=== PATIENT | female | born 1950 | race American Indian/Alaskan Native ===

== ENCOUNTER 2019-07-29 16:12 | Inpatient (IN) | payer MEDICARE ==
--- NOTE | 2019-07-29 16:30 | Event Note ---
ED Screening Note Date of service: 07/29/19 Time: 16:26 ED Screening Note: This is a 69 y.o. F. that presents to the ER with abdominal pain and right flank pain. Patient states she was here 2 months she was diagnosed with diverticulitis. She followed up with [facility]. + vomiting PMH DM2, HTN, & HLD This initial assessment/diagnostic orders/clinical plan/treatment(s) is/are subject to change based on patients health status, clinical progression and re- assessment by fellow clinical providers in the ED. Further treatment and workup at subsequent clinical providers discretion. Patient/guardian urged not to elope from the ED as their condition may be serious if not clinically assessed and managed. Initial orders include: Labs and CT of abdomen and pelvis
[2019-07-29 17:25] LABS: Alanine Aminotransferase 8 units/L (7-56); BUN/Creatinine Ratio 22; Blood Urea Nitrogen 13 mg/dL (7-17); Calcium 9.4 mg/dL (8.4-10.2); Hemolysis Index 0
[2019-07-29 17:32] LABS: Basophils % (Auto) 0.3 % (0.0-1.8); Eosinophils % (Auto) 0.1 % (0.0-4.3); Hematocrit 39.1 % (30.3-42.9); Hemoglobin 13.1 gm/dl (10.1-14.3); Lymphocytes # (Auto) 0.8 K/mm3 (1.2-5.4); Lymphocytes % (Auto) 7.7 % (13.4-35.0); Mean Corpuscular HGB Conc 34 % (30-34); Mean Corpuscular Volume 79 fl (79-97); Monocytes # (Auto) 0.5 K/mm3 (0.0-0.8); Monocytes % (Auto) 4.6 % (0.0-7.3); Platelet Count 224 K/mm3 (140-440); Red Blood Count 4.93 M/mm3 (3.65-5.03); Red Cell Distribution Width 15.1 % (13.2-15.2)
[2019-07-29] MEDS ORDERED: MORPHINE IV ONE (19:02)
[2019-07-29] MEDS ORDERED: NACL 0.9% 1000 ML 1,000 ML IV ONE ×2 (19:02→20:32)
[2019-07-29] MEDS ORDERED: ZOFRAN IV ONE (19:02)
--- NOTE | 2019-07-29 19:18 | Cat Scan Report ---
CT ABDOMEN AND PELVIS WITH IV CONTRAST INDICATION: diffuse abdominal pain. COMPARISON: CT 06/13/2019. TECHNIQUE: All CT scans at this facility use dose modulation, automated exposure control, iterative reconstructi on or weight based dosing, when appropriate, to reduce radiation dose to as low as reasonably achieva ble. FINDINGS: Lung Bases: No significant abnormality. Skeletal System: No acute abnormality. ABDOMEN: Liver: No significant abnormality. Gallbladder: No significant abnormality. Bile Ducts: No significant abnormality. Pancreas: No significant abnormality. Spleen: No significant abnormality. Adrenals: No significant abnormality. Right Kidney: No significant abnormality. Left Kidney: No significant abnormality. Upper GI tract: No significant abnormality. Lymph Nodes: No significant adenopathy. Aorta: No significant abnormality. Additional Findings: No significant abnormality. PELVIS: Colon: Small gas and fluid collection with peripheral enhancement is again seen within the midline u pper pelvis. This measures 2.3 x 3.1 cm on series 4 image 82. This may be slightly increased in size since the prior. There is diffuse extensive diverticulosis. Urinary Bladder and Distal Ureters: No significant abnormality. Appendix: No significant abnormality. Lymph Nodes: No significant adenopathy. Additional Findings: Pelvic loops of small bowel are fluid-filled and dilated. The very distal small bowel is relatively decompressed. IMPRESSION: 1. Subacute/chronic peridiverticular fluid collection in the midline pelvis has slightly increased i n size since the prior exam. This measures 3.1 x 2.3 cm (previously 2.6 cm in maximum dimension. This may communicate with the adjacent colon which shows mild inflammation/diverticulitis. Of note, pelvi c loops of small bowel are closely apposed to this collection and pelvic loops of small bowel are mil dly dilated. There may be some degree of partial small bowel obstruction due to adhesions associated with this inflammation. Findings are similar to the prior exam. 2. No new findings. Signer Name: Jeremiah Jack MD Signed: 07/29/2019 7:14 PM Workstation Name: [id number]
--- NOTE | 2019-07-29 19:26 | Emergency Department Report ---
ED Abdominal Pain HPI - General Chief Complaint: Abdominal Pain Stated Complaint: STOMACH PAIN Time Seen by Provider: 07/29/19 16:26 Source: patient Mode of arrival: Ambulatory Limitations: No Limitations - History of Present Illness Initial Comments: Patient is a 69-year-old -[place] female with a history of hypertension, pth-rdahuju-dgjkbksab diabetes, hyperlipidemia and recurrent diverticulitis who presents to the ED with complaint of acute onset persistent severe diffuse abdominal pain, nausea and vomiting with diarrhea for the last 2 days. Patient states that her symptoms are similar to the feeling she had about 6 months ago when she had diverticulitis exacerbation. Patient also states that she's been having persistent right flank pain that radiates to the right lower quadrant since the onset of the symptoms. Patient denies fever, chills, dysuria, dizziness, chest pain, shortness of breath, headache, headache, vaginal bleedin g, urinary frequency and urgency and low back pain. MD Complaint: abdominal pain, other (nausea, vomiting and diarrhea) -: Sudden, days(s) (2) Location: diffuse, R flank Radiation: LLQ, RLQ, R flank Migration to: no migration Severity: severe Severity scale (0 -10): 8 Quality: cramping, aching, sharp Consistency: constant Improves With: nothing Worsens With: nothing Associated Symptoms: denies other symptoms, nausea, vomiting, diarrhea, anorexia. denies: fever, chills, constipation, dysuria, hematemesis, hematochezia, melena, hematuria - Related Data Previous Rx's Medication Instructions Recorded Last Taken Type levoFLOXacin [Levofloxacin] 750 mg PO Q8HR 21 Days tablet 06/16/19 Unknown Rx metroNIDAZOLE [Metronidazole] 500 mg PO Q8H 21 Days tablet 06/16/19 Unknown Rx Doxazosin [Cardura] 4 mg PO QDAY #30 tablet 06/17/19 Unknown Rx Glimepiride [Amaryl] 4 mg PO QAM #30 tablet 06/17/19 Unknown Rx Insulin Regular, Human [HumuLIN R] 0 units SUB-Q Q6HR #300 units 06/17/19 Unknown Rx Pravastatin [Pravachol] 80 mg PO QHS #30 tablet 06/17/19 Unknown Rx levoFLOXacin [Levaquin] 750 mg PO QDAY #10 tablet 06/17/19 Unknown Rx metroNIDAZOLE [Flagyl] 500 mg PO Q8HR #30 tablet 06/17/19 Unknown Rx Allergies Allergy/AdvReac Type Severity Reaction Status Date / Time aspirin Allergy Vomiting Verified 06/13/19 07:59 codeine Allergy Unknown Verified 06/13/19 00:11 Penicillins Allergy Unknown Verified 06/13/19 00:11 ED Review of Systems ROS: Stated complaint: STOMACH PAIN Other details as noted in HPI Constitutional: denies: chills, fever Eyes: denies: eye pain, eye discharge, vision change ENT: denies: ear pain, throat pain Respiratory: denies: cough, shortness of breath, wheezing Cardiovascular: denies: chest pain, palpitations, syncope, paroxysmal nocturnal dyspnea Endocrine: no symptoms reported Gastrointestinal: abdominal pain, nausea, vomiting, diarrhea Genitourinary: denies: urgency, dysuria, discharge Musculoskeletal: denies: back pain, joint swelling, arthralgia Skin: denies: rash, lesions Neurological: denies: headache, weakness, paresthesias Psychiatric: denies: anxiety, depression Hematological/Lymphatic: denies: easy bleeding, easy bruising ED Past Medical Hx - Past Medical History Previous Medical History?: Yes Hx Diabetes: Yes Additional medical history: Ovarian cyst - Surgical History Past Surgical History?: Yes Additional Surgical History: Partial hysterectomy and ovarian cyst removal - Social History Smoking Status: Former Smoker Substance Use Type: Alcohol, Prescribed - Medications Home Medications: Home Medications Medication Instructions Recorded Confirmed Last Taken Type levoFLOXacin [Levofloxacin] 750 mg PO Q8HR 21 Days tablet 06/16/19 Unknown Rx metroNIDAZOLE [Metronidazole] 500 mg PO Q8H 21 Days tablet 06/16/19 Unknown Rx Doxazosin [Cardura] 4 mg PO QDAY #30 tablet 06/17/19 Unknown Rx Glimepiride [Amaryl] 4 mg PO QAM #30 tablet 06/17/19 Unknown Rx Insulin Regular, Human [HumuLIN R] 0 units SUB-Q Q6HR #300 units 06/17/19 Unknown Rx Pravastatin [Pravachol] 80 mg PO QHS #30 tablet 06/17/19 Unknown Rx levoFLOXacin [Levaquin] 750 mg PO QDAY #10 tablet 06/17/19 Unknown Rx metroNIDAZOLE [Flagyl] 500 mg PO Q8HR #30 tablet 06/17/19 Unknown Rx ED Physical Exam - General Limitations: No Limitations General appearance: alert, in no apparent distress - Head Head exam: Present: atraumatic, normocephalic, normal inspection - Eye Eye exam: Present: normal appearance, PERRL, EOMI Pupils: Present: normal accommodation - ENT ENT exam: Present: normal exam, normal orophraynx, mucous membranes moist, TM's normal bilaterally, normal external ear exam - Neck Neck exam: Present: normal inspection, full ROM - Respiratory Respiratory exam: Present: normal lung sounds bilaterally. Absent: respiratory distress, wheezes, rales, chest wall tenderness, accessory muscle use - Cardiovascular Cardiovascular Exam: Present: normal rhythm, tachycardia, normal heart sounds. Absent: systolic murmur, diastolic murmur, rubs, gallop - GI/Abdominal GI/Abdominal exam: Present: soft, tenderness (probable diffuse abdominal tenderness, worse in the left lower quadrant and right lower quadrant, with guarding), guarding, normal bowel sounds. Absent: rebound, hyperactive bowel sounds (.), hypoactive bowel sounds, mass - Extremities Exam Extremities exam: Present: normal inspection, full ROM, normal capillary refill - Back Exam Back exam: Present: normal inspection, full ROM. Absent: tenderness, CVA tenderness (R), CVA tenderness (L), muscle spasm, paraspinal tenderness - Neurological Exam Neurological exam: Present: alert, oriented X3, CN II-XII intact, normal gait, reflexes normal - Psychiatric Psychiatric exam: Present: normal affect, normal mood - Skin Skin exam: Present: warm, dry, intact, normal color. Absent: rash ED Course Vital Signs 07/29/19 07/29/19 07/29/19 16:25 17:44 19:34 Temperature 98.7 F 98.9 F Pulse Rate 125 H 108 H 114 H Respiratory 20 24 19 Rate Blood Pressure 188/95 Blood Pressure 169/85 143/85 [Right] O2 Sat by Pulse 96 100 100 Oximetry - Reevaluation(s) Reevaluation #1: 07/29/19 19:27 This is a 69-year-old female who presented to the ED with abdominal pain, nausea and vomiting with diarrhea. Patient has a history of chronic diverticulitis with occasional flares. In the ED, patient is alert and oriented 3 and is not in distress but appears to be in pain and is tachycardic in triage but afebrile. Lab test results were reviewed and are all unremarkable except for acute hyperglycemia of 328 mg/dL. Abdomen pelvis CT scan with contrast shows a subacute/chronic peridiverticular fluid collection in the midline pelvis which has slightly increased in size since the prior exam. This measures 3.1 x 2.3 cm (previously 2.6 cm in maximum dimension. This may communicate with the adjacent colon which shows mild inflammation/diverticulitis. Of note, pelvic loops of small bowel are closely apposed to this collection and pelvic loops of small bowel are mildly dilated. There may be some degree of partial small bowel obstruction due to adhesions associated with this inflammation. Findings are similar to the prior exam. These findings were discussed with the ED attending physician Dr. Altamirano who advised that the General Surgeon secondary market manager Dr. Kiran be paged for further direction. These findings were also discussed wi th the general surgeon secondary market manager Dr. Kiran who advised the patient be admitted to the hospital and he shall consult on the patient in the morning for admission. He advised that an NG tube be inserted on the patient. The patient's case was also discussed with the Hospitalist Physician secondary market manager Dr. Adame who admitted the patient to the hospital ED Medical Decision Making - Lab Data Result diagrams: 07/29/19 16:38 07/29/19 16:38 - Radiology Data Radiology results: report reviewed, [place] [address] Cat Scan Report Signed Patient: ELEAZAR ESPINO MR#: [id number] : 1950 Acct:[id number] Age/Sex: 69 / F ADM Date: 07/29/19 Loc: ED Attending Dr: Ordering Physician: CORTEZ BALL Date of Service: 07/29/19 Procedure(s): CT abdomen pelvis w con Accession Number(s): [id number] cc: CORTEZ BALL CT ABDOMEN AND PELVIS WITH IV CONTRAST INDICATION: diffuse abdominal pain. COMPARISON: CT 06/13/2019. TECHNIQUE: All CT scans at this facility use dose modulation, automated exposure control, iterative reconstruction or weight based dosing, when appropriate, to reduce radiation dose to as low as reasonably achievable. FINDINGS: Lung Bases: No significant abnormality. Skeletal System: No acute abnormality. ABDOMEN: Liver: No significant abnormality. Gallbladder: No significant abnormality. Bile Ducts: No significant abnormality. Pancreas: No significant abnormality. Spleen: No significant abnormality. Adrenals: No significant abnormality. Right Kidney: No significant abnormality. Left Kidney: No significant abnormality. Upper GI tract: No significant abnormality. Lymph Nodes: No significant adenopathy. Aorta: No significant abnormality. Additional Findings: No significant abnormality. PELVIS: Colon: Small gas and fluid collection with peripheral enhancement is again seen within the midline upper pelvis. This measures 2.3 x 3.1 cm on series 4 image 82. This may be slightly increased in size since the prior. There is diffuse extensive diverticulosis. Urinary Bladder and Distal Ureters: No significant abnormality. Appendix: No significant abnormality. Lymph Nodes: No significant adenopathy. Additional Findings: Pelvic loops of small bowel are fluid-filled and dilated. The very distal small bowel is relatively decompressed. IMPRESSION: 1. Subacute/chronic peridiverticular fluid collection in the midline pelvis has slightly increased in size since the prior exam. This measures 3.1 x 2.3 cm (previously 2.6 cm in maximum dimension. This may communicate with the adjacent colon which shows mild inflammation/diverticulitis. Of note, pelvic loops of small bowel are closely apposed to this collection and pelvic loops of small bowel are mildly dilated. There may be some degree of partial small bowel obstruction due to adhesions associated with this inflammation. Findings are similar to the prior exam. 2. No new findings. Signer Name: Jeremiah Jack MD Signed: 07/29/2019 7:14 PM Workstation Name: [id number] Transcribed By: MARCOS Dictated By: Jeremiah Jack MD Electronically Authenticated By: Jeremiah Jack MD Signed Date/Time: 07/29/191913 DD/ 08 TD/TT: - Medical Decision Making This is a 69-year-old female who presented to the ED with abdominal pain, nausea and vomiting with diarrhea. Patient has a history of chronic diverticulitis with occasional flares. In the ED, patient is alert and oriented 3 and is not in distress but appears to be in pain and is tachycardic in triage but afebrile. Lab test results were reviewed and are all unremarkable except for acute hyperglycemia of 328 mg/dL. Abdomen pelvis CT scan with contrast shows a subacute/chronic peridiverticular fluid collection in the midline pelvis which has slightly increased in size since the prior exam. This measures 3.1 x 2.3 cm (previously 2.6 cm in maximum dimension. This may communicate with the adjacent colon which shows mild inflammation/diverticulitis. Of note, pelvic loops of small bowel are closely apposed to this collection and pelvic loops of small bowel are mildly dilated. There may be some degree of partial small bowel obstruction due to adhesions associated with this inflammation. Findings are similar to the prior exam. These findings were discussed with the ED attending physician Dr. Altamirano who advised that the General Surgeon secondary market manager Dr. Kiran be paged for further direction. These findings were also discussed with the general surgeon secondary market manager Dr. Kiran who advised the patient be admitted to the hospital and he shall consult on the patient in the morning for admission. He advised that an NG tube be inserted on the patient. The patient's case was also discussed with the Hospitalist Physician secondary market manager Dr. Adame who admitted the patient to the hospital - Differential Diagnosis Abdominal pain; Diverticulitis; Pyelonephritis; Acute UTI; SBO; Colitis Critical care attestation.: If time is entered above; I have spent that time in minutes in the direct care of this critically ill patient, excluding procedure time. ED Disposition Clinical Impression: Nausea, vomiting and diarrhea, Acute diverticulitis of intestine, Small bowel obstruction due to adhesions Abdominal pain Qualifiers: Abdominal location: lower abdomen, unspecified Qualified Code(s): R10.30 - Lower abdominal pain, unspecified Disposition: OP ADMIT IP TO THIS HOSP Is pt being admited?: Yes Does the pt Need Aspirin: No Condition: Stable Instructions: Abdominal Pain (ED) Referrals: DEWAYNE ROMERO MD [Primary Care Provider] - 3-5 Days Time of Disposition: 21:29 Print Language: YI
[2019-07-29 19:36] LABS: Bilirubin,Urine NEG (Negative); Blood,Urine NEG (Negative); Color,Urine Yellow (Yellow); Mucus,Urine FEW /HPF; Urobilinogen,Urine < 2.0 mg/dL (<2.0)
[2019-07-29] MEDS ORDERED: FLAGYL 500 MG/100 ML 500 MG/100 ML BAG IV ONE (20:30)
[2019-07-29] MEDS ORDERED: REGLAN IV ONE (20:43)
[2019-07-29] MEDS ORDERED: DILAUDID ONE (20:52)
[2019-07-29] MEDS ORDERED: DILAUDID IV ONE (20:59)
[2019-07-29] MEDS ORDERED: LEVAQUIN 500MG/100ML 500 MG/100 ML BAG IV ONE (21:30)
[2019-07-29] MEDS ORDERED: D50W (25GM) Syringe IV PRN (22:45)
[2019-07-29] MEDS ORDERED: NACL 0.9% 1000 ML 1,000 ML IV SCH (23:00)
[2019-07-29] MEDS ORDERED: HumuLIN R ONE (23:24)
[2019-07-29] MEDS: HumuLIN R SUB-Q SCH (23:27)
[2019-07-30] MEDS: TYLENOL PR PRN (00:18)
[2019-07-30] MEDS: HumuLIN R SUB-Q SCH ×6 (02:34→22:49)
[2019-07-30] MEDS: FLAGYL 500 MG/100 ML 500 MG/100 ML BAG IV SCH ×3 (05:10→22:04)
--- NOTE | 2019-07-30 05:15 | History and Physical Report ---
CHIEF COMPLAINT: Abdominal pain. Other complaints include nausea and vomiting. HISTORY OF PRESENT ILLNESS: The patient is a 69-year-old female who says she has been having abdominal pain going on for about 2 days. Pain is diffuse in the abdomen area and is associated with nausea and vomiting and pain did not radiate and is similar to the pain patient had 6 months ago when she had diverticulitis. There is no history of fever or chills and no history of constipation. The patient also denied history of shortness of breath or dysuria. Pain is dull in character. PAST MEDICAL HISTORY: Pertinent for diabetes mellitus and ovarian cyst. PAST SURGICAL HISTORY: Pertinent for partial hysterectomy and ovarian cyst removal. FAMILY HISTORY: Reviewed and noncontributory. SOCIAL HISTORY: The patient drinks alcohol, does not smoke cigarette and does not use illicit drugs. MEDICATIONS: The patient is on the following medications: Levaquin 750 mg by mouth, frequency unknown. Also, patient is on metronidazole 500 mg by mouth every 8 hours and doxazosin 4 mg by mouth daily. The patient is also on glimepiride 4 mg by mouth every morning and on regular insulin sliding scale. Also, patient is on pravastatin 80 mg at bedtime. ALLERGIES: THE PATIENT IS ALLERGIC TO ASPIRIN, CODEINE, AND PENICILLIN. REVIEW OF SYSTEMS: CONSTITUTIONAL: There is no fever, no chills, no diaphoresis. HEENT: There is no headache or sore throat. CARDIOVASCULAR SYSTEM: There is no chest pain or orthopnea. RESPIRATORY SYSTEM: There is no shortness of breath or cough. GASTROINTESTINAL SYSTEM: Abdominal pain present. Nausea and vomiting present. No constipation, no diarrhea. NEUROLOGICAL SYSTEM: There is no numbness, no dizziness, no altered mental status. MUSCULOSKELETAL SYSTEM: There is no joint pain or swelling. DERMATOLOGICAL SYSTEM: There is no skin rash or itching. GENITOURINARY SYSTEM: There is no dysuria, hematuria, or flank pain. Rest of system review is normal. PHYSICAL EXAMINATION: GENERAL: At the time of exam, patient was found to be alert, oriented x 3 and in mild distress due to abdominal pain. VITAL SIGNS: The patient's vital signs at the initial time of presentation showed temperature of 98.7 degrees Fahrenheit, pulse of 125, respirations 20, blood pressure 188/95, O2 sat of 96% on room air. HEENT: Showed pupils to be equal, round, reactive to light and accommodating. Extraocular muscles are intact. NECK: Supple with no JVD or carotid bruit. CARDIOVASCULAR SYSTEM: Showed normal first and second heart sounds with no gallops or murmur. RESPIRATORY SYSTEM: Showed good air entry on both sides of the lungs with no abnormal breath sounds. GASTROINTESTINAL SYSTEM: Show abdomen to be full, soft with tenderness in the left lower quadrant and suprapubic area. There is no rigidity, no organomegaly was elicited and no rebound tenderness present. Bowel sound is normal. MUSCULOSKELETAL SYSTEM: Show no joint swelling or tenderness. DERMATOLOGICAL SYSTEM: Show no skin rash. GENITOURINARY SYSTEM: Show no costovertebral angle tenderness. PERTINENT LABORATORY: The patient has CBC done with normal white count, normal hemoglobin and normal hematocrit with CBC differential showing elevated neutrophil count of 87.3%. The patient's chemistry was normal except for elevated blood glucose level of 328. The rest of the patient's chemistry was unremarkable. Urinalysis showed high specific gravity of 1.048, otherwise unremarkable. IMAGING STUDIES: The patient had CT of the abdomen and pelvis done with IV contrast and this shows evidence of diverticulitis and small-bowel obstruction. DIAGNOSES: 1. Small-bowel obstruction. 2. Diverticulitis. PLAN OF CARE: 1. The patient will be admitted to medical/surgical [facility]. 2. The patient will continue surgical consult with Dr. Kiran requested by the Emergency Room physician. 3. The patient will be on Accu-Chek q. 4 hours followed by low-dose sliding scale using regular insulin coverage. 4. The patient will continue intermittent low wall nasogastric suctioning requested by the Emergency Room physician. 5. The patient will remain n.p.o. until reviewed by the surgeon. 6. The patient will be on IV metronidazole 500 mg q. 8 hours and will be on IV Levaquin 750 mg daily. 7. The patient will be on IV Dilaudid 0.5 mg q. 4 hours as needed for pain and IV Zofran 4 mg every 8 hours for nausea and vomiting. 8. The patient will be on Tylenol suppository 650 mg rectally every 4 hours for fever and headache. JOB# [id number] OCN/NTS
[2019-07-30] MEDS: DILAUDID IV PRN ×4 (06:33→22:45)
[2019-07-30] MEDS: ZOFRAN IV PRN ×3 (06:48→17:49)
[2019-07-30] MEDS: HEPARIN SUB-Q SCH ×2 (09:53→22:07)
[2019-07-30] MEDS: LEVAQUIN 750MG/150ML 750 MG/150 ML BAG IV SCH (09:54)
--- NOTE | 2019-07-30 11:53 | Event Note ---
Date: 07/30/19 Patient is seen and examined. Has a history of recurrent diverticulitis with a CT scan showing evidence of small bowel obstruction. Abdominal pain. No vomiting. Has not had any bowel movement but the past 2 days. Surgical consult has been placed. We'll continue with current management plan, NPO, IV fluids and IV antibiotics while awaiting a surgical imput.
[2019-07-30] MEDS: PEPCID PO SCH ×2 (12:51→22:05)
[2019-07-30] MEDS: D5/0.45NS 1,000 ML IV SCH (12:52)
--- NOTE | 2019-07-30 13:29 | Consultation ---
History of Present Illness Consult date: 07/30/19 Reason for consult: abdominal pain Requesting physician: BRIAN MEDLEY Chief complaint: Left side abdominal pain - History of present illness History of present illness: 69 year old female presented to the ED yesterday with an acute recurrence of the same abdominal pain that she had in May for which she was admitted. At that time, she had a one day history of epigastric abdominal pain with nausea and vomiting. she says the pain was 10/10. A CT scan showed distal sigmoid diver ticulitis with 2.6cm adjacent abscess w/ no free air and possible bowel obstruction. She was admitted and given IV antibiotics. She improved and was eventually discharged. The infectious disease plan at that time was to give her 3 weeks of antibiotics and follow-up in the office which she did. She was also supposed to get a repeat CT scan as an outpatient, she reports that infectious disease and it was no longer needed. She reports that she completely recovered at that time. She had no symptoms. This is now a completely new episode of pain. It is exactly the same as it was in May. This time, there were no fevers, chills, nausea, vomiting. She has been passing flatus. Her pain is slightly better than admission. She never did get a colonoscopy. She stated that under no circumstances did she want any surgery. Past History Past Medical History: diabetes, hypertension, hyperlipidemia Past Surgical History: hysterectomy (with ovarian cystectomy) Social history: denies: smoking, alcohol abuse Family history: no significant family history Medications and Allergies Allergies Allergy/AdvReac Type Severity Reaction Status Date / Time aspirin Allergy Vomiting Verified 06/13/19 07:59 codeine Allergy Unknown Verified 06/13/19 00:11 Penicillins Allergy Unknown Verified 06/13/19 00:11 Home Medications Medication Instructions Recorded Confirmed Last Taken Type levoFLOXacin [Levofloxacin] 750 mg PO Q8HR 21 Days tablet 06/16/19 07/30/19 Unknown Rx metroNIDAZOLE [Metronidazole] 500 mg PO Q8H 21 Days tablet 06/16/19 07/30/19 Unknown Rx Doxazosin [Cardura] 4 mg PO QDAY #30 tablet 06/17/19 07/30/19 Unknown Rx Glimepiride [Amaryl] 4 mg PO QAM #30 tablet 06/17/19 07/30/19 Unknown Rx Insulin Regular, Human [HumuLIN R] 0 units SUB-Q Q6HR #300 units 06/17/1907/18 Unknown Rx Pravastatin [Pravachol] 80 mg PO QHS #30 tablet 06/17/19 07/30/19 Unknown Rx levoFLOXacin [Levaquin] 750 mg PO QDAY #10 tablet 06/17/19 07/30/19 Unknown Rx metroNIDAZOLE [Flagyl] 500 mg PO Q8HR #30 tablet 06/17/19 07/30/19 Unknown Rx Active Meds: Active Medications Acetaminophen (Tylenol) 650 mg CO Q4H PRN PRN Reason: Fever >101 Last Admin: 07/30/19 00:18 Dose: 650 mg Documented by: Dextrose (D50w (25gm) Syringe) 50 ml IV PRN PRN PRN Reason: Hypoglycemia Famotidine (Pepcid) 40 mg PO BID JR Last Admin: 07/30/19 12:51 Dose: 40 mg Documented by: Heparin Sodium (Porcine) (Heparin) 5,000 unit SUB-Q Q12HR JR Last Admin: 07/30/19 09:53 Dose: 5,000 unit Documented by: Hydromorphone HCl (Dilaudid) 0.5 mg IV Q4H PRN PRN Reason: Pain, Moderate (4-6) Last Admin: 07/30/19 12:59 Dose: 0.5 mg Documented by: Metronidazole (Flagyl 500 Mg/100 Ml) 500 mg in 100 mls @ 100 mls/hr IV Q8HR JR; Protocol Last Admin: 07/30/19 13:00 Dose: 100 mls/hr Documented by: Levofloxacin/Dextrose (Levaquin 750mg/150ml) 750 mg in 150 mls @ 100 mls/hr IV Q24HR JR; Protocol Last Admin: 07/30/19 09:54 Dose: 100 mls/hr Documented by: Dextrose/Sodium Chloride (D5/0.45ns) 1,000 mls @ 100 mls/hr IV DIRECT JR Last Admin: 07/30/19 12:52 Dose: 100 mls/hr Documented by: Insulin Human Regular (Humulin R) 0 units SUB-Q Q4HR JR; Protocol Last Admin: 07/30/19 10:26 Dose: 3 units Documented by: Ondansetron HCl (Zofran) 4 mg IV Q8H PRN PRN Reason: Nausea And Vomiting Last Admin: 07/30/19 13:04 Dose: 4 mg Documented by: Review of Systems - Constitutional no fever, no chills, no chronic pain - Cardiovascular no chest pain, no shortness of breath - Respiratory no cough - Gastrointestinal abdominal pain, constipation, heartburn, no nausea, no vomiting, no change in bowel habits, no BRBPR, no melena, no hematochezia, no dyspepsia/bloating - Genitourinary Genitourinary: no dysuria - Muskuloskeletal no low back pain - Integumentary no rash, no pruritis, no redness, no sores Exam Vital Signs Temp Pulse Resp BP Pulse Ox 98.7 F 125 H 20 188/95 96 07/29/19 16:25 07/29/19 16:25 07/29/19 16:25 07/29/19 16:25 07/29/19 16:25 - General physical appearance Positive: no distress, no pain, obese - Eyes Positive: normal occular movement - Respiratory Positive: normal expansion, normal respiratory effort, clear to auscultation - Cardiovascular Rhythm: regular - Abdomen Abdomen: Present: soft, tender (mild on left side of abdomen), bowel sounds hypoactive, surgical scars (well healed lower midline incision). Absent: masses, rebound, guarding, rigid, wound - Integumentary no rash, no growths, no abnormal pigmentation - Neurologic Neurologic: alert and oriented to time, place and person, motor strength and se nsation are grossly intact - Psychiatric Psychiatric: appropriate mood/affect, intact judgment & insight, cooperative Results - Labs 07/29/19 16:38 07/29/19 16:38 Abnormal lab results 07/29/19 07/29/19 07/29/19 Range/Units 16:38 16:38 19:23 MCH 27 L (28-32) pg Lymph % (Auto) 7.7 L (13.4-35.0) % Lymph # 0.8 L (1.2-5.4) K/mm3 Seg Neutrophils % 87.3 H (40.0-70.0) % Seg Neutrophils # 8.8 H (1.8-7.7) K/mm3 Creatinine 0.6 L (0.7-1.2) mg/dL Glucose 328 H (65-100) mg/dL POC Glucose (70-105) Ur Specific [place] 1.048 H (1.003-1.030) 07/29/19 07/30/19 07/30/19 Range/Units 23:24 02:26 06:45 MCH (28-32) pg Lymph % (Auto) (13.4-35.0) % Lymph # (1.2-5.4) K/mm3 Seg Neutrophils % (40.0-70.0) % Seg Neutrophils # (1.8-7.7) K/mm3 Creatinine (0.7-1.2) mg/dL Glucose (65-100) mg/dL POC Glucose 297 H 270 H 285 H (70-105) Ur Specific [place] (1.003-1.030) 07/30/19 07/30/19 Range/Units 10:25 11:34 MCH (28-32) pg Lymph % (Auto) (13.4-35.0) % Lymph # (1.2-5.4) K/mm3 Seg Neutrophils % (40.0-70.0) % Seg Neutrophils # (1.8-7.7) K/mm3 Creatinine (0.7-1.2) mg/dL Glucose (65-100) mg/dL POC Glucose 281 H 287 H (70-105) Ur Specific [place] (1.003-1.030) Diabetes panel 07/29/19 Range/Units 16:38 Sodium 137 (137-145) mmol/L Potassium 4.4 (3.6-5.0) mmol/L Chloride 98.0 (98-107) mmol/L Carbon Dioxide 23 (22-30) mmol/L BUN 13 (7-17) mg/dL Creatinine 0.6 L (0.7-1.2) mg/dL Glucose 328 H (65-100) mg/dL Calcium 9.4 (8.4-10.2) mg/dL AST 9 (5-40) units/L ALT 8 (7-56) units/L Alkaline Phosphatase 77 (35-129) units/L Total Protein 7.8 (6.3-8.2) g/dL Albumin 4.0 (3.9-5) g/dL Calcium panel 07/29/19 Range/Units 16:38 Calcium 9.4 (8.4-10.2) mg/dL Albumin 4.0 (3.9-5) g/dL Pituitary panel 07/29/19 Range/Units 16:38 Sodium 137 (137-145) mmol/L Potassium 4.4 (3.6-5.0) mmol/L Chloride 98.0 (98-107) mmol/L Carbon Dioxide 23 (22-30) mmol/L BUN 13 (7-17) mg/dL Creatinine 0.6 L (0.7-1.2) mg/dL Glucose 328 H (65-100) mg/dL Calcium 9.4 (8.4-10.2) mg/dL Adrenal panel 07/29/19 Range/Units 16:38 Sodium 137 (137-145) mmol/L Potassium 4.4 (3.6-5.0) mmol/L Chloride 98.0 (98-107) mmol/L Carbon Dioxide 23 (22-30) mmol/L BUN 13 (7-17) mg/dL Creatinine 0.6 L (0.7-1.2) mg/dL Glucose 328 H (65-100) mg/dL Calcium 9.4 (8.4-10.2) mg/dL Total Bilirubin 0.50 (0.1-1.2) mg/dL AST 9 (5-40) units/L ALT 8 (7-56) units/L Alkaline Phosphatase 77 (35-129) units/L Total Protein 7.8 (6.3-8.2) g/dL Albumin 4.0 (3.9-5) g/dL - Imaging CT scan - abdomen: report reviewed, image reviewed CT scan - pelvis: report reviewed, image reviewed Assessment and Plan - Patient Problems (1) Diverticulitis of large intestine with abscess Current Visit: Yes Status: Acute Qualifiers: Diverticulitis bleeding: without bleeding Qualified Code(s): K57.20 - Diverticulitis of large intestine with perforation and abscess without bleeding Plan to address problem: Pt stable. Most likely, the fluid collection adjacent to the area of di verticulitis never completely resolved. Without that interval CT scan, we cannot say for sure that her initial diverticulitis attack completely resolved. I presume that it persisted and this fluid collection is a continuation from May. Patient does not require any urgent surgical intervention. However, I think eventually she will need surgery to resolve this issue. The location of the fluid collection makes it unlikely that interventional radiology will be able to drain it. In addition, it is very small and usually something like this is treated with antibiotics. When this was mentioned to her, she adamantly refused to have any surgery. She had a bad experience with a friend dying from what she reports was similar situation. I asked her to consider the situation of her health declining to the point that it's an emergency. She said she will think about it and let someone know what her decision would be in that scenario. Clinically, she does not show any signs of a bowel obstruction. He has been passing flatus. Okay to start a clear liquid diet. Would advance her diet as her overall picture improves. Rec: 1) ID consult for IV Abx management 2) When d/c'd would get repeat CT when Abx therapy completed 3) Needs c-scope when current episode resolves. 4) high fiber diet and increased water intake. Will be available if needed. Please call with questions. Time=30min
--- NOTE | 2019-07-30 22:30 | Progress Note ---
Assessment and Plan - Small bowel obstruction per CT scan of abdomen Nothing by mouth, IV fluid, surgical consult Continue patient on IV Levaquin and Flagyl - Diverticulitis Continue with nothing by mouth, IV antibiotics - T2 DM Patient continued to be nothing by mouth IV fluid with D5 half-normal Obtain A1c, lipid panel Sliding scale insulin Consistent collided diet when patient commence oral feeding - Morbid obesity with BMI of 45.0 Dietary counseling done - DVT prophylaxis with Lovenox and GI with Pepcid - Time spent: 32 minutes Subjective Date of service: 07/30/19 Principal diagnosis: recurrent diverticulitis, partial intestinal obstruction, Interval history: Patient seen and examined. Complains of mild abdominal pain. No nausea no vomiting. Passes flatus but no bowel movement for the past 2 days. Objective - Exam Narrative Exam: Constitutional: Well-nourished well-developed. In no distress Head: Normocephalic atraumatic Eyes: Pupils are equal round and reactive to light Nose: No enlarged turbinates, no septal deviation. Mouth: Moist mucous membranes. Neck: Supple no thyromegaly. No bruit. No JVD Heart: Regular rate and rhythm, S1-S2 normal. No rubs murmurs or gallop Lungs: Clear to auscultation bilaterally. no rales or rhonchi Abdomen: Soft, nontender. Bowel sound are present. Extremities: No edema, no cyanosis, no clubbing. Neuro: Alert oriented Oriented x3. No focal sensory or motor deficit. Skin: No rashes or hyperpigmented spots Musculoskeletal system: No joint pain or swelling Hematological: No petechia or subcutanous hemorrhages. Immunological: No multiple septic spots on the skin Lymphatic: No generalized lymphadenopathy Psychiatry: Euthymic. Calm. - Labs CBC & Chem 7: 07/29/19 16:38 07/29/19 16:38 Labs: Abnormal lab results 07/29/19 07/30/19 07/30/19 Range/Units 23:24 02:26 06:45 POC Glucose 297 H 270 H 285 H (70-105) 07/30/19 07/30/19 07/30/19 Range/Units 10:25 11:34 14:49 POC Glucose 281 H 287 H 244 H (70-105) 07/30/19 07/30/19 Range/Units 18:04 21:57 POC Glucose 245 H 247 H (70-105)
[2019-07-31] MEDS: D5/0.45NS 1,000 ML IV SCH (00:25)
[2019-07-31] MEDS: HumuLIN R SUB-Q SCH ×6 (03:13→23:07)
[2019-07-31] MEDS: FLAGYL 500 MG/100 ML 500 MG/100 ML BAG IV SCH ×3 (05:54→23:05)
[2019-07-31 06:31] LABS: Basophils % (Auto) 0.4 % (0.0-1.8); Eosinophils # (Auto) 0.1 K/mm3 (0.0-0.4); Hematocrit 32.3 % (30.3-42.9); Hemoglobin 10.8 gm/dl (10.1-14.3); Lymphocytes # (Auto) 1.1 K/mm3 (1.2-5.4); Lymphocytes % (Auto) 18.2 % (13.4-35.0); Mean Corpuscular HGB Conc 34 % (30-34); Mean Corpuscular Volume 80 fl (79-97); Monocytes # (Auto) 0.4 K/mm3 (0.0-0.8); Monocytes % (Auto) 6.6 % (0.0-7.3); Platelet Count 179 K/mm3 (140-440); Red Blood Count 4.03 M/mm3 (3.65-5.03); Red Cell Distribution Width 15.1 % (13.2-15.2)
[2019-07-31 07:01] LABS: BUN/Creatinine Ratio 14; Blood Urea Nitrogen 7 mg/dL (7-17); Calcium 8.6 mg/dL (8.4-10.2); Hemolysis Index 17
[2019-07-31 07:04] LABS: Alanine Aminotransferase < 5 units/L (7-56)
[2019-07-31] MEDS: LEVAQUIN 750MG/150ML 750 MG/150 ML BAG IV SCH (10:15)
[2019-07-31] MEDS: PEPCID PO SCH ×2 (10:16→23:06)
[2019-07-31] MEDS: HEPARIN SUB-Q SCH ×2 (10:16→23:06)
--- NOTE | 2019-07-31 10:19 | Progress Note ---
Assessment and Plan - Small bowel obstruction per CT scan of abdomen Patient had 2 bowel movements today Surgeon's Rec noted Commence clear liquid and advance as tolerated Continue patient on IV Levaquin and Flagyl - Diverticulitis Clear liquids and IV antibiotics - T2 DM IV fluid with D5 half-normal Obtain A1c, lipid panel Sliding scale insulin Consistent collided diet when patient commence oral feeding - Morbid obesity with BMI of 45.0 Dietary counseling done - DVT prophylaxis with Lovenox and GI with Pepcid - Time spent: 32 minutes Subjective Date of service: 07/31/19 Principal diagnosis: recurrent diverticulitis, partial intestinal obstruction, Interval history: Patient seen and examined. Complains of mild abdominal pain. No nausea no vomiting. Had BM x 2 today. Objective - Exam Narrative Exam: Constitutional: Well-nourished well-developed. In no distress Head: Normocephalic atraumatic Eyes: Pupils are equal round and reactive to light Nose: No enlarged turbinates, no septal deviation. Mouth: Moist mucous membranes. Neck: Supple no thyromegaly. No bruit. No JVD Heart: Regular rate and rhythm, S1-S2 normal. No rubs murmurs or gallop Lungs: Clear to auscultation bilaterally. no rales or rhonchi Abdomen: Soft, nontender. Bowel sound are present. Extremities: No edema, no cyanosis, no clubbing. Neuro: Alert oriented Oriented x3. No focal sensory or motor deficit. Skin: No rashes or hyperpigmented spots Musculoskeletal system: No joint pain or swelling Hematological: No petechia or subcutanous hemorrhages. Immunological: No multiple septic spots on the skin Lymphatic: No generalized lymphadenopathy Psychiatry: Euthymic. Calm. - Constitutional Vitals: Vital Signs - 12hr 07/31/19 02:39 Temperature 99.3 F Pulse Rate 93 H Respiratory 18 Rate Blood Pressure 127/65 O2 Sat by Pulse 93 Oximetry - Labs CBC & Chem 7: 07/31/19 05:34 07/31/19 05:34 Labs: Abnormal lab results 07/30/19 07/30/19 07/30/19 Range/Units 10:25 11:34 14:49 MCH (28-32) pg Lymph # (1.2-5.4) K/mm3 Seg Neutrophils % (40.0-70.0) % Creatinine (0.7-1.2) mg/dL Glucose (65-100) mg/dL POC Glucose 281 H 287 H 244 H (70-105) Phosphorus (2.5-4.5) mg/dL ALT (7-56) units/L Albumin (3.9-5) g/dL 07/30/19 07/30/19 07/31/19 Range/Units 18:04 21:57 02:45 MCH (28-32) pg Lymph # (1.2-5.4) K/mm3 Seg Neutrophils % (40.0-70.0) % Creatinine (0.7-1.2) mg/dL Glucose (65-100) mg/dL POC Glucose 245 H 247 H 230 H (70-105) Phosphorus (2.5-4.5) mg/dL ALT (7-56) units/L Albumin (3.9-5) g/dL 07/31/19 07/31/19 07/31/19 Range/Units 05:34 05:34 06:03 MCH 27 L (28-32) pg Lymph # 1.1 L (1.2-5.4) K/mm3 Seg Neutrophils % 73.8 H (40.0-70.0) % Creatinine 0.5 L (0.7-1.2) mg/dL Glucose 225 H (65-100) mg/dL POC Glucose 242 H (70-105) Phosphorus 2.40 L (2.5-4.5) mg/dL ALT < 5 L (7-56) units/L Albumin 3.0 L (3.9-5) g/dL
[2019-07-31 11:56] LABS: Chol/HDL Ratio 3.07 %
[2019-07-31] MEDS: DILAUDID IV PRN (13:50)
[2019-07-31] MEDS: TYLENOL PR PRN (23:06)
[2019-08-01] MEDS: FLAGYL 500 MG/100 ML 500 MG/100 ML BAG IV SCH (05:35)
[2019-08-01 06:26] LABS: Basophils % (Auto) 0.5 % (0.0-1.8); Eosinophils # (Auto) 0.1 K/mm3 (0.0-0.4); Eosinophils % (Auto) 1.4 % (0.0-4.3); Hematocrit 32.8 % (30.3-42.9); Hemoglobin 10.8 gm/dl (10.1-14.3); Lymphocytes # (Auto) 1.6 K/mm3 (1.2-5.4); Lymphocytes % (Auto) 27.3 % (13.4-35.0); Mean Corpuscular HGB Conc 33 % (30-34); Mean Corpuscular Volume 80 fl (79-97); Monocytes # (Auto) 0.4 K/mm3 (0.0-0.8); Monocytes % (Auto) 6.1 % (0.0-7.3); Platelet Count 191 K/mm3 (140-440); Red Blood Count 4.13 M/mm3 (3.65-5.03)
[2019-08-01 06:58] LABS: Alanine Aminotransferase 5 units/L (7-56); Albumin 3.3 g/dL (3.9-5); BUN/Creatinine Ratio 12; Blood Urea Nitrogen 6 mg/dL (7-17); Calcium 8.8 mg/dL (8.4-10.2); Hemolysis Index 7
[2019-08-01] MEDS: HumuLIN R SUB-Q SCH ×2 (08:14→12:14)
[2019-08-01] MEDS: PEPCID PO SCH (09:04)
[2019-08-01] MEDS: HEPARIN SUB-Q SCH (09:05)
[2019-08-01] MEDS: LEVAQUIN 750MG/150ML 750 MG/150 ML BAG IV SCH (09:05)
[2019-08-01 09:44] VITALS: BP 137/59
--- NOTE | 2019-08-01 10:53 | Discharge Summary ---
Providers - Providers Date of Admission: 07/29/19 22:36 Attending physician: MIKI RICE MD 07/29/19 20:42 Consult to Physician [CONS] Routine Comment: called answering service/ cookie Consulting Provider: TARIK PALMER Physician Instructions: NG tube insertion; Surgeon to see her in the AM Reason For Exam: SBO with Diverticulitis Primary care physician: DEWAYNE ROMERO Hospitalization Condition: Stable Hospital course: Patient refused surgical intervention but will follow with surgeon She is tolerating Po and pain is controlled Will complete 14 days of abx - Small bowel obstruction per CT scan of abdomen Patient had 2 bowel movements today Surgeon's Rec noted Commence clear liquid and advance as tolerated Continue patient on IV Levaquin and Flagyl - Diverticulitis Clear liquids and IV antibiotics -SIRS with organ dysfunction - T2 DM IV fluid with D5 half-normal Obtain A1c, lipid panel Sliding scale insulin Consistent collided diet when patient commence oral feeding - Morbid obesity with BMI of 45.0 Dietary counseling done Disposition: - TO HOME OR SELFCARE Time spent for discharge: 35 mins Exam - Constitutional Vitals: Temp Pulse Resp BP Pulse Ox 99.0 F 68 18 137/59 98 08/01/19 07:10 08/01/19 07:10 08/01/19 07:10 08/01/19 07:10 08/01/19 07:10 Plan Activity: advance as tolerated, fall precautions Diet: low cholesterol, low salt, advance as tolerated (full liquid for 4-5 days then advance slowly as tolerated) Special Instructions: record daily BP diary Follow up with: DEWAYNE ROMERO MD [Primary Care Provider] - 3-5 Days TARIK PALMER MD [Staff Physician] - 14 Days Prescriptions: metroNIDAZOLE [Flagyl TAB] 500 mg PO Q8HR #30 tablet levoFLOXacin [Levaquin TAB] 750 mg PO QDAY #10 tablet Famotidine [Pepcid] 20 mg PO BID #30 tablet oxyCODONE /ACETAMINOPHEN [Percocet 5/325] 1 tab PO Q6HR PRN #14 tablet PRN Reason: Pain Ondansetron [Zofran Odt] 4 mg PO Q8HR #14 tab.rapdis
== END 2019-08-01 12:05 | disposition home or self-care (01) | DRG 388 ==
LOC: ED 16:12 → 2B-ACE 22:36
PROVIDERS: ADMIT Internal Medicine; ATTEND Internal Medicine
DX: K56.50 Intestinal adhesions [bands], unspecified as to partial versus complete obstruction (principal); R65.11 Systemic inflammatory response syndrome (SIRS) of non-infectious origin with acute organ dysfunction; K57.20 Diverticulitis of large intestine with perforation and abscess without bleeding; Z68.42 Body mass index [BMI] 45.0-49.9, adult; E66.01 Morbid (severe) obesity due to excess calories; I10 Essential (primary) hypertension; E11.9 Type 2 diabetes mellitus without complications; Z88.6 Allergy status to analgesic agent; Z71.3 Dietary counseling and surveillance; Z88.5 Allergy status to narcotic agent; Z88.0 Allergy status to penicillin; Z79.899 Other long term (current) drug therapy; Z72.89 Other problems related to lifestyle; Z90.711 Acquired absence of uterus with remaining cervical stump
CPT/HCPCS: 36415; 74177; 80053; 80061; 81001; 82962; 83036; 83690; 83735; 84100; 84484; 85025; 87116; 93005; 93010; 96365; 96375; G0378; J1170; J1644; J1815; J1956; J2270; J2405; J2765; J7030; Q9967